=== PATIENT | female | born 2000 | race Caucasian/White ===

== ENCOUNTER 2023-04-02 23:53 | Emergency (ER) | payer BC ==
[2023-04-03] MEDS ORDERED: Famotidine/PF 20 mg/2ml Vial ONE (00:11)
[2023-04-03] MEDS ORDERED: methylPREDNISolone Sod Succ/PF 125 MG/2 ML VIAL ONE (00:11)
== END 2023-04-03 02:42 | disposition home or self-care (01) ==
LOC: CSHERS 23:53
DX: L50.9 Urticaria, unspecified (principal); T78.40XA Allergy, unspecified, initial encounter; R21 Rash and other nonspecific skin eruption
CPT/HCPCS: 96374; 96375; J2930; S0028